=== PATIENT | female | born 1935 | race Caucasian/White ===

== ENCOUNTER → 2023-11-16 | Outpatient (CLI) | payer MEDICARE ==
[2023-11-16 21:36] LABS: IGM,SERUM 127 mg/dL (33-293); IMMUNOGLOBULIN A 110 mg/dL (69-517); IMMUNOGLOBULIN E, TOTAL <25 IU/mL (0-100); IMMUNOGLOBULIN G 726 mg/dL (552-1631)
== END ==
LOC: LAB 14:51
PROVIDERS: Physician Assistant
DX: Z87.01 Personal history of pneumonia (recurrent) (principal)

== ENCOUNTER → 2024-06-04 | Outpatient (CLI) | payer MEDICARE | LOC: LAB 12:07 | DX: U07.1 COVID-19 (principal); R50.9 Fever, unspecified ==